=== PATIENT | male | born 1975 | race Caucasian/White ===

== ENCOUNTER 2024-08-14 13:13 | Day surgery (SDC) | payer OTHER, SELFPAY ==
[2024-08-14] MEDS: LACTATED RINGERS 1,000 ML 42 ML IV (13:46)
[2024-08-14 13:48] VITALS: BP 132/72; PULSE 85; RESP 18; TEMP 36.4; O2SAT 98
--- NOTE | 2024-08-14 14:11 | PM.HP.IH.1 ---
History of Present Illness History of Present Illness Date Patient Seen: 08/14/24 Time Patient Seen: 14:12 Chief complaint: Colonoscopy Narrative: Mitch is a 49year old man in for a colonoscopy, his first. No known family history of colon cancer. [facility] Social History Smoking Status: Current every day smoker alcohol intake: current Meds Home Medications and Allergies Allergies Allergy/AdvReac Type Severity Reaction Status Date / Time No Known Drug Allergies Allergy Verified 08/14/24 13:48 Exam Vital Signs (past 8 hours): - 08/14/24 13:48 Temperature 97.5 F L Pulse Rate 85 Respiratory Rate 18 Blood Pressure 132/72 Pulse Oximetry 98 Oxygen Delivery Method Room Air Oxygen Delivery Method Room Air Const General: healthy appearing Resp Effort & Inspection: normal respiratory effort Assessment & Plan Assessment and plan (1) Colon cancer screening: Status: Acute Plan Colonoscopy Time-Based Coding :: [TOTAL MINUTES] spent with patient and on the chart (including review of chart, obtaining history, exam, reviewing outside data, placing orders, documenting exam and treatment plan, and counseling patient) on [DATE]. [employer] Document charge(s): No
--- NOTE | 2024-08-14 15:05 | PM.OP.COLON ---
Operative Date/Time/Diagnoses Date of procedure: 08/14/24 Time of procedure: 15:05 Pre-op diagnosis: Colon cancer screening Post-op diagnosis: same Procedure & Clinicians Study performed: Colonoscopy Same procedure as scheduled: Yes Surgeon: Hood Bucio Procedure Notes Procedure in detail: Surgeon: Hood Bucio MD Anesthesia: Mateusz Mckeon D.O. Procedure: The patient was brought to the endoscopy suite, placed in left lateral decubitus position. The patient was connected to monitoring devices. A time-out was performed. Sedation was administered. Once the patient was adequately sedated, a digital rectal exam was performed and was normal. The scope was then inserted and advanced to the cecum where the appendiceal orifice was identified and photographed. The scope was then slowly withdrawn over greater than 6 minutes. The mucosa was thoroughly inspected. There were a few scattered diverticula in the sigmoid colon. The scope was retroflexed in the rectum. No other abnormalities were found. The scope was straightened and removed. The patient was awakened and brought to recovery. Scope withdrawal time: 6 minutes Sedation time: 12 minutes EBL: 0 Findings: Rare scattered sigmoid diverticula Post-procedure Recommendations: Colonoscopy in 10 years Disposition: PACU
[2024-08-14 15:08] VITALS: BP 111/74; PULSE 84; RESP 18; TEMP 36.3; O2SAT 96
[2024-08-14 15:13] VITALS: BP 105/73; PULSE 75; RESP 13; O2SAT 97
[2024-08-14 15:18] VITALS: BP 103/65; PULSE 72; RESP 16; TEMP 36.3; O2SAT 97
[2024-08-14 15:23] VITALS: BP 95/65; PULSE 69; RESP 16; O2SAT 98
[2024-08-14 15:29] VITALS: BP 108/76; PULSE 69; RESP 16; TEMP 36.3; O2SAT 96
== END 2024-08-14 15:39 | disposition home or self-care (01) ==
PROVIDERS: PCP Family Medicine; Referring Provider Surgery; Visit Provider Surgery
PROC: 0DJD8ZZ Inspection of Lower Intestinal Tract, Via Natural or Artificial Opening Endoscopic (ICD-10-PCS; CPT 45378; principal; 2024-08-14 14:45)
DX: Z12.11 Encounter for screening for malignant neoplasm of colon (principal); F17.210 Nicotine dependence, cigarettes, uncomplicated; K57.30 Diverticulosis of large intestine without perforation or abscess without bleeding
CPT/HCPCS: 45378; J2704

== ENCOUNTER → 2025-05-08 10:34 | Outpatient (CLI) | payer OTHER, SELFPAY ==
[2025-05-08 11:55] LABS: Alanine Aminotransferase 30 IU/L (<50); Albumin 4.7 g/dL (3.5-5.0); Albumin Globulin Ratio 1.4 (1.0-2.8); Alkaline Phosphatase 64 U/L (38-126); Blood Urea Nitrogen 15 mg/dL (9-20); Calcium 9.2 mg/dL (8.4-10.2); Carbon Dioxide 20 mmol/L (22-32); Chloride 109 mmol/L (98-107); Cholesterol 240 mg/dL (140-199); Estimated Glomerular Filt Rate > 60 mL/min (>60); Globulin 3.3 g/dL (1.7-4.1); Glucose 96 mg/dL (70-99); HDL Cholesterol 52 mg/dL (40-60); HEMOLYSIS < 15 (0-50); Potassium 4.9 mmol/L (3.4-5.1); Sodium 140 mmol/L (137-145); Total Protein 8.0 g/dL (6.3-8.2); Triglycerides 106 mg/dL (35-150)
[2025-05-08 12:01] LABS: Hemoglobin A1C% w Est Avg Glu 5.0 % (4.0-6.0)
== END ==
PROVIDERS: PCP Family Medicine; Referring Provider Family Medicine; Visit Provider Family Medicine
DX: E78.5 Hyperlipidemia, unspecified (principal); Z83.79 Family history of other diseases of the digestive system; Z68.41 Body mass index [BMI] 40.0-44.9, adult; Z76.89 Persons encountering health services in other specified circumstances; Z79.899 Other long term (current) drug therapy
CPT/HCPCS: 36415; 80053; 80061; 83036